=== PATIENT | male | born 1975 | race Caucasian/White ===

== ENCOUNTER 2023-08-29 13:55 | Outpatient (AMB) | payer OTHER, SELFPAY ==
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
== END 2023-08-29 15:06 | disposition home or self-care (01) ==
PROVIDERS: PCP Internal Medicine; Visit Provider Urology
DX: C64.9 Malignant neoplasm of unspecified kidney, except renal pelvis (principal)
CPT/HCPCS: 99204

== ENCOUNTER → 2023-08-29 13:55 | Outpatient (BNVA) | payer OTHER, SELFPAY | PROVIDERS: PCP Internal Medicine; Visit Provider Urology | DX: C64.1 Malignant neoplasm of right kidney, except renal pelvis (principal) | CPT/HCPCS: 99202 ==

== ENCOUNTER 2023-10-23 09:41 | Outpatient (AMB) | payer OTHER, SELFPAY ==
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
== END 2023-10-23 10:15 | disposition home or self-care (01) ==
PROVIDERS: PCP Internal Medicine; Visit Provider Urology
DX: C64.9 Malignant neoplasm of unspecified kidney, except renal pelvis (principal)
CPT/HCPCS: 99213

== ENCOUNTER → 2023-10-23 09:41 | Outpatient (BNVA) | payer OTHER, SELFPAY | PROVIDERS: PCP Internal Medicine; Visit Provider Urology ==